=== PATIENT | female | born 1995 | race Caucasian/White ===

== ENCOUNTER 2020-05-01 23:50 | Emergency (ER) | payer OTHER ==
[~2020-05-01 23:50] MED LIST: ATARAX25 MG PO; COLACE100 MG PO; MACRODANTIN50 MG PO; NAPROXEN500 MG PO; NORCO 5-325 TA1 EACH PO; ONDANSETRON ODT4 MG PO; PNV 29-1 TABLE1 EACH PO; PROTONIX 40MG T40 MG PO; ZYRTEC10 M3 PO
[2020-05-02] MEDS ORDERED: VIBRAMYCIN100 MG PO (01:43)
[2020-06-22] MEDS ORDERED: IBUPROFEN800 MG PO (10:04)
[2020-06-22] MEDS ORDERED: VENLAFAXINE H37.5 M1 PO (10:04)
[2020-06-22] MEDS ORDERED: MOBIC7.5 MG PO (10:05)
[2020-06-22] MEDS ORDERED: METHYLPREDNISOLO4 M1 PO (10:05)
[2020-06-28] MEDS ORDERED: VENTOLIN HFA IN18 GM INH (10:07)
[2020-06-28] MEDS ORDERED: PERCOCET 5-3251 EACH PO (11:18)
== END 2020-05-02 01:55 | disposition home or self-care (01) ==
LOC: FER 23:50
DX: T14.8XXA Other injury of unspecified body region, initial encounter (principal); Z65.8 Other specified problems related to psychosocial circumstances; X58.XXXA Exposure to other specified factors, initial encounter; Z88.1 Allergy status to other antibiotic agents
CPT/HCPCS: 99282

== ENCOUNTER → 2020-06-28 | Day surgery (SDC) | payer OTHER ==
[~2020-06-28] VITALS: Ht 167.6 cm; Wt 106.6 kg
[~2020-06-28] MED LIST changes: +IBUPROFEN800 MG PO; +METHYLPREDNISOLO4 M1 PO; +MOBIC7.5 MG PO; +PERCOCET 5-3251 EACH PO; +VENLAFAXINE H37.5 M1 PO; +VENTOLIN HFA IN18 GM INH; +VIBRAMYCIN100 MG PO
[2020-06-28 10:00] LABS: HCG (URINE) SCREEN NEGATIVE (NEGATIVE)
== END | disposition home or self-care (01) ==
LOC: FAS 09:34
PROVIDERS: Anesthesiology
DX: M25.861 Other specified joint disorders, right knee (principal); M17.11 Unilateral primary osteoarthritis, right knee; J45.909 Unspecified asthma, uncomplicated; K58.9 Irritable bowel syndrome, unspecified; F17.210 Nicotine dependence, cigarettes, uncomplicated; Z88.1 Allergy status to other antibiotic agents; Z79.899 Other long term (current) drug therapy
CPT/HCPCS: 84703; J2250; J2405; J2704; J3010; J7120

== ENCOUNTER 2020-09-01 22:59 | Emergency (ER) | payer OTHER ==
[2020-09-02] MEDS ORDERED: IBUPROFEN800 MG PO (00:55)
== END 2020-09-02 01:05 | disposition home or self-care (01) ==
LOC: FER 22:59
DX: S93.402A Sprain of unspecified ligament of left ankle, initial encounter (principal); J45.909 Unspecified asthma, uncomplicated; F17.210 Nicotine dependence, cigarettes, uncomplicated; Z88.1 Allergy status to other antibiotic agents; W10.1XXA Fall (on)(from) sidewalk curb, initial encounter; Y92.410 Unspecified street and highway as the place of occurrence of the external cause
CPT/HCPCS: 73610; 99283; J1885

== ENCOUNTER 2020-10-28 07:38 | Emergency (ER) | payer OTHER ==
[2020-10-28 09:04] LABS: BILIRUBIN 1+ mg/dL (NEGATIVE); BLOOD TRACE-INTACT Ery/uL (NEGATIVE); CLARITY CLEAR (CLEAR); COLOR YELLOW (YELLOW); GLUCOSE (U) NORMAL (NORMAL); LEUKOCYTES 1+ Leu/uL (NEGATIVE); NITRITE NEGATIVE (NEGATIVE); PROTEIN NEGATIVE (NEGATIVE); SPECIFIC GRAVITY >=1.030 (1.001-1.030); UROBILINOGEN 0.2 mg/dL (0.2-1.0); pH 5.5 (5.0-9.0)
[2020-10-28 09:19] LABS: SQUAMOUS EPITHELIAL CELLS 20-50
[2020-10-28 09:20] LABS: BACTERIA 1+; URINARY RBC RARE
[2020-10-28 09:29] LABS: BASOPHIL 0.8 % (0-2); EOSINOPHIL 1.7 % (0-5); HCT 41.4 % (37.0-47.0); HGB 14.3 g/dl (12.5-16.0); LYMPHOCYTE 45.3 % (15-48); MCH 28.8 pg (25.0-31.0); MCHC 34.5 g/dL (32.0-36.0); MCV 83.5 fL (78.0-100.0); MONOCYTE 6.6 % (0-12); MPV 10.5 fL (6.0-9.5); NEUTROPHIL 45.3 % (41-80); NRBC 0; PLT 258 K/uL (150-400); RBC 4.96 M/uL (4.20-5.40); RDW 13.2 % (11.5-14.0); WBC 6.3 K/uL (4.0-10.5)
[2020-10-28 09:47] LABS: ALBUMIN 3.9 g/dL (3.4-5.0); BILIRUBIN - TOTAL 0.5 mg/dL (0.2-1.0); BUN/CREAT RATIO (CALC) 17.5 RATIO; C-REACTIVE PROTEIN 1.4 mg/dL (<=0.90); CREATININE 0.97 mg/dL (0.51-0.95); POTASSIUM 2.8 mmol/L (3.5-5.1); TOTAL PROTEIN 6.9 g/dL (6.4-8.2)
[2020-10-28] MEDS ORDERED: ATARAX25 MG PO (10:59)
[2020-10-28] MEDS ORDERED: NORCO 5-325 TA1 EACH PO (10:59)
== END 2020-10-28 11:23 | disposition home or self-care (01) ==
LOC: FER 07:38
PROVIDERS: Emergency Medicine
DX: F41.9 Anxiety disorder, unspecified (principal); M54.5 Low back pain; F17.210 Nicotine dependence, cigarettes, uncomplicated
CPT/HCPCS: 36415; 72131; 80053; 81001; 83690; 84145; 85025; 86140; J1170; J1885; J2405; J7030; Q9967

== ENCOUNTER 2020-12-21 22:24 | Emergency (ER) | payer OTHER ==
[2020-12-23] MEDS ORDERED: MOTRIN600 MG PO (17:39)
== END 2020-12-22 04:10 | disposition home or self-care (01) ==
LOC: FER 22:24
DX: M25.561 Pain in right knee (principal); F17.200 Nicotine dependence, unspecified, uncomplicated; X50.9XXA Other and unspecified overexertion or strenuous movements or postures, initial encounter
CPT/HCPCS: 73560; 93971

== ENCOUNTER 2020-12-23 14:01 | Emergency (ER) | payer OTHER ==
[2020-12-23] MEDS ORDERED: MOTRIN600 MG PO (17:39)
== END 2020-12-23 18:11 | disposition home or self-care (01) ==
LOC: FER 14:01
DX: S80.01XA Contusion of right knee, initial encounter (principal); F17.210 Nicotine dependence, cigarettes, uncomplicated; Z88.1 Allergy status to other antibiotic agents; W08.XXXA Fall from other furniture, initial encounter; Y92.009 Unspecified place in unspecified non-institutional (private) residence as the place of occurrence of the external cause
CPT/HCPCS: 73560

== ENCOUNTER 2020-12-28 17:31 | Emergency (ER) | payer OTHER ==
[~2020-12-28 17:31] MED LIST changes: +MOTRIN600 MG PO
== END 2020-12-28 19:42 | disposition home or self-care (01) ==
LOC: FER 17:31
DX: B34.9 Viral infection, unspecified (principal); Z20.822 Contact with and (suspected) exposure to COVID-19; Z87.09 Personal history of other diseases of the respiratory system; Z88.1 Allergy status to other antibiotic agents
CPT/HCPCS: 87880; 99283; J1885; U0002

== ENCOUNTER 2021-03-04 13:03 | Emergency (ER) | payer OTHER ==
[2021-03-04] MEDS ORDERED: NAPROXEN500 MG PO (15:21)
[2021-03-04] MEDS ORDERED: NORCO 5-325 TA1 EACH PO (15:21)
== END 2021-03-04 16:04 | disposition home or self-care (01) ==
LOC: FER 13:03
DX: M25.561 Pain in right knee (principal); J45.909 Unspecified asthma, uncomplicated; F17.210 Nicotine dependence, cigarettes, uncomplicated; Z88.1 Allergy status to other antibiotic agents; Z88.3 Allergy status to other anti-infective agents
CPT/HCPCS: 73560

== ENCOUNTER 2021-04-29 13:03 | Emergency (ER) | payer OTHER | END 2021-04-29 16:17 | disposition home or self-care (01) | LOC: FER 13:03 | DX: S83.91XA Sprain of unspecified site of right knee, initial encounter (principal); F17.210 Nicotine dependence, cigarettes, uncomplicated; Z88.1 Allergy status to other antibiotic agents; X50.1XXA Overexertion from prolonged static or awkward postures, initial encounter; Y93.89 Activity, other specified; Y92.009 Unspecified place in unspecified non-institutional (private) residence as the place of occurrence of the external cause | CPT/HCPCS: 73564; J1885 ==

== ENCOUNTER 2021-06-16 08:49 | Emergency (ER) | payer OTHER ==
[~2021-06-16 08:49] MED LIST changes: +FIORICET1 EACH PO; +FLONASE ALLER15.8 ML
[2021-06-16 10:23] LABS: BASOPHIL 0.5 % (0-2); BILIRUBIN NEGATIVE (NEGATIVE); BLOOD NEGATIVE Ery/uL (NEGATIVE); CLARITY CLEAR (CLEAR); COLOR YELLOW (YELLOW); EOSINOPHIL 2.2 % (0-5); GLUCOSE (U) NORMAL (NORMAL); HCT 37.5 % (37.0-47.0); HGB 12.5 g/dl (12.5-16.0); LEUKOCYTES 1+ Leu/uL (NEGATIVE); LYMPHOCYTE 34.2 % (15-48); MCH 28.4 pg (25.0-31.0); MCHC 33.3 g/dL (32.0-36.0); MCV 85.2 fL (78.0-100.0); MONOCYTE 6.2 % (0-12); NEUTROPHIL 56.6 % (41-80); NITRITE NEGATIVE (NEGATIVE); NRBC 0; PLT 226 K/uL (150-400); PROTEIN NEGATIVE (NEGATIVE); RDW 13.6 % (11.5-14.0); SPECIFIC GRAVITY >=1.030 (1.001-1.030); UROBILINOGEN 0.2 mg/dL (0.2-1.0); WBC 7.7 K/uL (4.0-10.5)
[2021-06-16 10:32] LABS: BACTERIA 3+; SQUAMOUS EPITHELIAL CELLS >50
[2021-06-16 10:35] LABS: ALBUMIN 3.2 g/dL (3.4-5.0); BILIRUBIN - TOTAL 0.2 mg/dL (0.2-1.0); BUN/CREAT RATIO (CALC) 19.5 RATIO; CREATININE 0.87 mg/dL (0.51-0.95); GLOBULIN (CALCULATION) 2.3 g/dL; POTASSIUM 3.7 mmol/L (3.5-5.1); TOTAL PROTEIN 5.5 g/dL (6.4-8.2)
[2021-06-16] MEDS ORDERED: NORCO 5-325 TA1 EACH PO (10:43)
== END 2021-06-16 10:59 | disposition home or self-care (01) ==
LOC: FER 08:49
PROVIDERS: Emergency Medicine
DX: N80.9 Endometriosis, unspecified (principal); J45.909 Unspecified asthma, uncomplicated; F17.200 Nicotine dependence, unspecified, uncomplicated; E66.9 Obesity, unspecified; Z88.1 Allergy status to other antibiotic agents
CPT/HCPCS: 36415; 80053; 81001; 83690; 84145; 85025; J2270; J2405

== ENCOUNTER 2021-06-19 04:00 | Emergency (ER) | payer OTHER ==
[2021-06-19 04:58] LABS: BILIRUBIN NEGATIVE (NEGATIVE); BLOOD 3+ Ery/uL (NEGATIVE); CLARITY CLEAR (CLEAR); COLOR YELLOW (YELLOW); GLUCOSE (U) NORMAL (NORMAL); LEUKOCYTES NEGATIVE Leu/uL (NEGATIVE); NITRITE NEGATIVE (NEGATIVE); PROTEIN TRACE (LOW) mg/dL (NEGATIVE); SPECIFIC GRAVITY >=1.030 (1.001-1.030); UROBILINOGEN 0.2 mg/dL (0.2-1.0)
[2021-06-19 05:10] LABS: BACTERIA 1+; CALCIUM OXALATE CRYSTALS MODERATE; URINARY RBC TNTC
[2021-06-19] MEDS ORDERED: ONDANSETRON ODT4 MG PO (05:32)
[2021-06-19] MEDS ORDERED: PERCOCET 5-3251 EACH PO (05:32)
== END 2021-06-19 05:58 | disposition home or self-care (01) ==
LOC: FER 04:00
PROVIDERS: Internal Medicine
DX: N80.9 Endometriosis, unspecified (principal); F17.210 Nicotine dependence, cigarettes, uncomplicated; Z88.1 Allergy status to other antibiotic agents
CPT/HCPCS: 81001; J1170; J1885; J2405

== ENCOUNTER 2021-06-22 15:48 | Emergency (ER) | payer OTHER ==
[2021-06-22 18:42] LABS: BASOPHIL 0.6 % (0-2); EOSINOPHIL 0.8 % (0-5); HCT 40.7 % (37.0-47.0); HGB 13.5 g/dl (12.5-16.0); LYMPHOCYTE 31.1 % (15-48); MCH 28.4 pg (25.0-31.0); MCHC 33.2 g/dL (32.0-36.0); MCV 85.7 fL (78.0-100.0); MONOCYTE 4.1 % (0-12); MPV 9.5 fL (6.0-9.5); NEUTROPHIL 63.1 % (41-80); NRBC 0; PLT 286 K/uL (150-400); RBC 4.75 M/uL (4.20-5.40); RDW 13.8 % (11.5-14.0); WBC 9.1 K/uL (4.0-10.5)
[2021-06-22 18:45] LABS: BILIRUBIN NEGATIVE (NEGATIVE); BLOOD NEGATIVE Ery/uL (NEGATIVE); CLARITY CLEAR (CLEAR); COLOR YELLOW (YELLOW); GLUCOSE (U) NORMAL (NORMAL); LEUKOCYTES NEGATIVE Leu/uL (NEGATIVE); NITRITE NEGATIVE (NEGATIVE); PROTEIN NEGATIVE (NEGATIVE); SPECIFIC GRAVITY 1.025 (1.001-1.030); UROBILINOGEN 0.2 mg/dL (0.2-1.0)
[2021-06-22 18:55] LABS: ALBUMIN 3.7 g/dL (3.4-5.0); BILIRUBIN - TOTAL 0.3 mg/dL (0.2-1.0); BUN/CREAT RATIO (CALC) 14.6 RATIO; CREATININE 0.82 mg/dL (0.51-0.95); GLOBULIN (CALCULATION) 3.1 g/dL; POTASSIUM 3.9 mmol/L (3.5-5.1); TOTAL PROTEIN 6.8 g/dL (6.4-8.2)
== END 2021-06-22 20:54 | disposition home or self-care (01) ==
LOC: FER 15:48
PROVIDERS: Nurse Practitioner Family
DX: R10.84 Generalized abdominal pain (principal); R11.2 Nausea with vomiting, unspecified; J45.909 Unspecified asthma, uncomplicated; F17.210 Nicotine dependence, cigarettes, uncomplicated; Z88.1 Allergy status to other antibiotic agents
CPT/HCPCS: 36415; 80053; 81003; 85025; J1885; J2405; J7030; Q9967

== ENCOUNTER 2021-06-28 13:21 | Emergency (ER) | payer OTHER ==
[2021-06-28 14:31] LABS: BILIRUBIN NEGATIVE (NEGATIVE); BLOOD NEGATIVE Ery/uL (NEGATIVE); CLARITY HAZY (CLEAR); COLOR YELLOW (YELLOW); GLUCOSE (U) NORMAL (NORMAL); LEUKOCYTES NEGATIVE Leu/uL (NEGATIVE); NITRITE NEGATIVE (NEGATIVE); PROTEIN TRACE (LOW) mg/dL (NEGATIVE); SPECIFIC GRAVITY 1.015 (1.001-1.030); UROBILINOGEN 0.2 mg/dL (0.2-1.0); pH 8.5 (5.0-9.0)
[2021-06-28 14:44] LABS: BACTERIA 1+; URINARY RBC RARE
[2021-06-28 14:53] LABS: BASOPHIL 0.6 % (0-2); EOSINOPHIL 0.3 % (0-5); HCT 39.9 % (37.0-47.0); HGB 13.5 g/dl (12.5-16.0); MCHC 33.8 g/dL (32.0-36.0); MCV 85.6 fL (78.0-100.0); MONOCYTE 4.1 % (0-12); MPV 9.7 fL (6.0-9.5); NEUTROPHIL 78.7 % (41-80); NRBC 0; PLT 272 K/uL (150-400); RBC 4.66 M/uL (4.20-5.40); RDW 13.9 % (11.5-14.0); WBC 10.5 K/uL (4.0-10.5)
[2021-06-28 15:17] LABS: ALBUMIN 3.5 g/dL (3.4-5.0); BILIRUBIN - TOTAL 0.3 mg/dL (0.2-1.0); BUN/CREAT RATIO (CALC) 8.7 RATIO; CREATININE 0.69 mg/dL (0.51-0.95); GLOBULIN (CALCULATION) 3.2 g/dL; POTASSIUM 3.8 mmol/L (3.5-5.1); TOTAL PROTEIN 6.7 g/dL (6.4-8.2)
== END 2021-06-28 16:02 | disposition home or self-care (01) ==
LOC: FER 13:21
PROVIDERS: Physician Assistant
DX: R10.31 Right lower quadrant pain (principal); G89.29 Other chronic pain; N80.9 Endometriosis, unspecified; J45.909 Unspecified asthma, uncomplicated; F17.210 Nicotine dependence, cigarettes, uncomplicated; Z88.1 Allergy status to other antibiotic agents
CPT/HCPCS: 36415; 80053; 81001; 85025; J1885; J2405; J7030

== ENCOUNTER 2021-07-14 14:16 | Emergency (ER) | payer OTHER | END 2021-07-14 14:52 | disposition home or self-care (01) | LOC: FER 14:16 | DX: G89.29 Other chronic pain (principal); R10.2 Pelvic and perineal pain; F17.210 Nicotine dependence, cigarettes, uncomplicated; Z88.1 Allergy status to other antibiotic agents | CPT/HCPCS: 99283; J1885 ==

== ENCOUNTER 2021-07-20 22:46 | Emergency (ER) | payer OTHER ==
[2021-07-21 00:17] LABS: BASOPHIL 0.5 % (0-2); EOSINOPHIL 0.3 % (0-5); HCT 42.8 % (37.0-47.0); HGB 14.3 g/dl (12.5-16.0); LYMPHOCYTE 25.9 % (15-48); MCH 27.9 pg (25.0-31.0); MCHC 33.4 g/dL (32.0-36.0); MCV 83.6 fL (78.0-100.0); MONOCYTE 3.8 % (0-12); MPV 10.6 fL (6.0-9.5); NEUTROPHIL 69.2 % (41-80); NRBC 0; PLT 290 K/uL (150-400); RBC 5.12 M/uL (4.20-5.40); RDW 14.1 % (11.5-14.0); WBC 8.8 K/uL (4.0-10.5)
[2021-07-21 00:22] LABS: BILIRUBIN NEGATIVE (NEGATIVE); BLOOD NEGATIVE Ery/uL (NEGATIVE); CLARITY CLEAR (CLEAR); COLOR YELLOW (YELLOW); GLUCOSE (U) NORMAL (NORMAL); LEUKOCYTES 1+ Leu/uL (NEGATIVE); NITRITE NEGATIVE (NEGATIVE); PROTEIN NEGATIVE (NEGATIVE); UROBILINOGEN 0.2 mg/dL (0.2-1.0)
[2021-07-21 00:28] LABS: AMPHETAMINES NEGATIVE (NEGATIVE); BARBITURATES NEGATIVE (NEGATIVE); ECSTASY (MDMA) NEGATIVE (NEGATIVE); MARIJUANA (THC) NEGATIVE (NEGATIVE); METHADONE NEGATIVE (NEGATIVE); OPIATES NEGATIVE (NEGATIVE); OXYCODONE NEGATIVE (NEGATIVE)
[2021-07-21 00:33] LABS: BACTERIA 1+; MUCOUS TRACE
[2021-07-21 00:35] LABS: URINARY RBC RARE
[2021-07-21 00:43] LABS: ALBUMIN 4.2 g/dL (3.4-5.0); ALKALINE PHOSHATASE 116 U/L (46-116); ALT 32 U/L (14-59); AST 18 U/L (15-37); BILIRUBIN - TOTAL 0.4 mg/dL (0.2-1.0); BUN 14 mg/dL (7-18); BUN/CREAT RATIO (CALC) 15.4 RATIO; CHLORIDE 105 mmol/L (98-107); CO2 (BICARBONATE) 20 mmol/L (21-32); CREATININE 0.91 mg/dL (0.51-0.95); GLOBULIN (CALCULATION) 3.3 g/dL; GLUCOSE 100 mg/dL (74-106); POTASSIUM 3.8 mmol/L (3.5-5.1); TOTAL PROTEIN 7.5 g/dL (6.4-8.2)
[2021-07-21 00:44] LABS: ACETAMINOPHEN (TYLENOL) < 2.0 ug/mL (10.0-30.0)
== END 2021-07-21 04:15 | disposition home or self-care (01) ==
LOC: FER 22:46
PROVIDERS: Internal Medicine
DX: G43.909 Migraine, unspecified, not intractable, without status migrainosus (principal); F41.0 Panic disorder [episodic paroxysmal anxiety]; F12.90 Cannabis use, unspecified, uncomplicated
CPT/HCPCS: 36415; 80053; 80305; 81001; 85025; 96372; G0480; J1170; J1885; J2060; J2405; J3030

== ENCOUNTER 2021-08-16 03:31 | Emergency (ER) | payer OTHER ==
[2021-08-16 04:25] LABS: EOSINOPHIL 0.6 % (0-5); HCT 41.9 % (37.0-47.0); LYMPHOCYTE 39.5 % (15-48); MCH 27.2 pg (25.0-31.0); MCHC 33.4 g/dL (32.0-36.0); MCV 81.4 fL (78.0-100.0); MPV 9.9 fL (6.0-9.5); NEUTROPHIL 53.8 % (41-80); NRBC 0; PLT 354 K/uL (150-400); RBC 5.15 M/uL (4.20-5.40); RDW 13.9 % (11.5-14.0); WBC 7.8 K/uL (4.0-10.5)
[2021-08-16 04:41] LABS: ALBUMIN 3.8 g/dL (3.4-5.0); BILIRUBIN - TOTAL 0.3 mg/dL (0.2-1.0); BUN/CREAT RATIO (CALC) 7.9 RATIO; CREATININE 0.76 mg/dL (0.51-0.95); GLOBULIN (CALCULATION) 3.5 g/dL; POTASSIUM 3.5 mmol/L (3.5-5.1); TOTAL PROTEIN 7.3 g/dL (6.4-8.2)
[2021-08-16 04:41] LABS: BILIRUBIN NEGATIVE (NEGATIVE); BLOOD TRACE-INTACT Ery/uL (NEGATIVE); CLARITY SLIGHTLY HAZY (CLEAR); COLOR YELLOW (YELLOW); GLUCOSE (U) NORMAL (NORMAL); LEUKOCYTES 2+ Leu/uL (NEGATIVE); NITRITE NEGATIVE (NEGATIVE); PROTEIN NEGATIVE (NEGATIVE); SPECIFIC GRAVITY 1.015 (1.001-1.030); UROBILINOGEN 0.2 mg/dL (0.2-1.0); pH 8.5 (5.0-9.0)
[2021-08-16 04:47] LABS: BACTERIA TRACE
[2021-08-16 04:48] LABS: TRANSITIONAL EPITHELIAL CELLS RARE
== END 2021-08-16 06:11 | disposition home or self-care (01) ==
LOC: FER 03:31
PROVIDERS: Emergency Medicine
DX: R10.9 Unspecified abdominal pain (principal); F17.200 Nicotine dependence, unspecified, uncomplicated; Z88.1 Allergy status to other antibiotic agents; Z28.310 Unvaccinated for COVID-19
CPT/HCPCS: 36415; 80053; 81001; 83690; 85025; 87088; J1885; J2405; J7030; Q9967

== ENCOUNTER 2021-11-15 22:00 | Emergency (ER) | payer OTHER ==
[2021-11-16 01:20] LABS: BILIRUBIN NEGATIVE (NEGATIVE); BLOOD NEGATIVE Ery/uL (NEGATIVE); CLARITY CLEAR (CLEAR); COLOR YELLOW (YELLOW); GLUCOSE (U) NORMAL (NORMAL); LEUKOCYTES NEGATIVE Leu/uL (NEGATIVE); NITRITE NEGATIVE (NEGATIVE); PROTEIN NEGATIVE (NEGATIVE); UROBILINOGEN 0.2 mg/dL (0.2-1.0); pH 6.5 (5.0-9.0)
[2021-11-16 01:40] LABS: BACTERIA TRACE; URINARY RBC RARE; URINARY WBC RARE
== END 2021-11-16 01:26 | disposition home or self-care (01) ==
LOC: FER 22:00
PROVIDERS: Emergency Medicine
DX: M25.552 Pain in left hip (principal); M25.551 Pain in right hip; F17.200 Nicotine dependence, unspecified, uncomplicated; Z88.1 Allergy status to other antibiotic agents
CPT/HCPCS: 72170; 81001; J1885

== ENCOUNTER → 2022-01-24 | Day surgery (SDC) | payer OTHER ==
[~2022-01-24] VITALS: Ht 165.1 cm; Wt 104.3 kg
== END | disposition home or self-care (01) ==
LOC: FAS 05:55
DX: M25.861 Other specified joint disorders, right knee (principal); M17.11 Unilateral primary osteoarthritis, right knee; J45.909 Unspecified asthma, uncomplicated; F17.200 Nicotine dependence, unspecified, uncomplicated; Z88.1 Allergy status to other antibiotic agents
CPT/HCPCS: J1100; J1885; J2250; J2405; J2704; J3010; J7120